=== PATIENT | male | born 1990 | race Caucasian/White ===

== ENCOUNTER 2016-11-06 16:55 | Emergency (ER) | payer OTHER ==
--- NOTE | 2016-11-17 21:34 | ER ---
ADMIT: 11/06/2016 RM/LOC: ER [facility] MR#: [id number] [place], [place] [id number] CHAGO NAIR [address] [place] [id number] Emergency Room Report SEX: M AGE: 26 : 1990 DATE: 11/06/2016 ADDENDUM: This patient comes to the ER because he has pain in his right hand 5 days ago. He punched a bookshelf. He has a lot of movement. He knows he broke a bone. He is not sure what to do about it. On physical exam, he does have some swelling and ecchymosis in the right hand around the 5th metacarpal. Sensation is intact. He can move that digit. X-ray showed a fracture of the shaft of the right 5th metacarpal. He was placed in a gutter splint. He is to follow up with Dr. Stark. Please see my T-sheet. ALL Rausch / Roger Hammer MD / faustina JOB #: [id number] CC: Roger Hammer MD, Attending Physician Phan Stark MD, Family Physician
== END 2016-11-06 18:40 | disposition home or self-care (01) ==
LOC: ER 16:55
PROC: 2W3JX1Z Immobilization of Right Finger using Splint (ICD-10-PCS; principal; 2016-11-06)
DX: S62.326A Displaced fracture of shaft of fifth metacarpal bone, right hand, initial encounter for closed fracture (principal); F17.210 Nicotine dependence, cigarettes, uncomplicated; W22.8XXA Striking against or struck by other objects, initial encounter; Y92.009 Unspecified place in unspecified non-institutional (private) residence as the place of occurrence of the external cause